=== PATIENT | male | born 1950 | race Caucasian/White ===

== ENCOUNTER 2018-08-04 04:58 | Inpatient (IN) ==
[2018-08-02 17:18] LABS: Basophils # (Auto) 0 K/mcL (0.0-0.3); Basophils % (Auto) 0.3 % (0.0-2.0); Eosinophils # (Auto) 0.1 K/mcL (0.0-0.7); Eosinophils % (Auto) 0.7 % (0.0-7.0); Granulocytes % (Auto) 57.9 % (38.0-78.0); Lymphocytes % (Auto) 34.2 % (15.5-49.0); Mean Cell Volume 90.7 fL (80.0-100.0); Mean Corpuscular HGB Conc 33.9 g/dL (31.0-36.0); Monocytes # (Auto) 0.6 K/mcL (0.1-0.9); Monocytes % (Auto) 6.9 % (1.0-12.0); Platelet Count 284 K/mcL (140-440); RBC 4.87 M/mcL (4.50-5.90)
[2018-08-02 17:32] LABS: Blood Urea Nitrogen 22 mg/dl (8-23)
[~2018-08-04 04:58] MED LIST: 0.9 % SODIUM CHLORIDE 250 ML IV SCH
[2018-08-04] MEDS ORDERED: 0.9 % SODIUM CHLORIDE 250 ML IV SCH ×2 (05:00→12:34)
[2018-08-04] MEDS ORDERED: cefOXitin 2 GM VIAL IV SCH ×2 (06:30→12:34)
[2018-08-04] MEDS ORDERED: TRANEXAMIC ACID 1,000 MG/10 ML VIAL IV ONE (07:45)
[2018-08-04] MEDS ORDERED: LIDOCAINE HCL/PF 100 MG/5 ML SYRINGE IV ONE (07:45)
[2018-08-04] MEDS ORDERED: ROCURONIUM 10 MG/ML ML IV ONE (07:45)
[2018-08-04] MEDS ORDERED: HYDROmorphone 2 MG/ML VIAL IV ONE (07:45)
[2018-08-04] MEDS ORDERED: KETAMINE 100 MG/ML ML IV ONE (07:45)
[2018-08-04] MEDS ORDERED: PHENYLEPHRINE 10 MG/ML VIAL IV ONE (07:45)
[2018-08-04] MEDS ORDERED: PROPOFOL 200 MG/20 ML VIAL IV ONE (07:45)
[2018-08-04] MEDS ORDERED: NEOSTIGMINE 1 MG/ML VIAL IV ONE (07:45)
[2018-08-04] MEDS ORDERED: ONDANSETRON 4 MG/2 ML VIAL IV ONE (07:45)
[2018-08-04] MEDS ORDERED: MIDAZOLAM 2 MG/2 ML VIAL IV ONE (07:45)
[2018-08-04] MEDS ORDERED: GLYCOPYRROLATE 0.2 MG/ML VIAL IV ONE (07:45)
[2018-08-04] MEDS ORDERED: fentaNYL 250 MCG/5 ML VIAL IV ONE (07:45)
[2018-08-04] MEDS ORDERED: BUPIVACAINE W/EPI 0.25% 50 ML VIAL IJ ONE (07:57)
[2018-08-04] MEDS ORDERED: MEPERIDINE 25 MG/ML SYRINGE IV PRN ×2 (09:28→10:38)
[2018-08-04] MEDS ORDERED: IPRATROPIUM/ALBUTEROL 3 ML AMPUL.NEB NEB PRN ×2 (09:28→10:38)
[2018-08-04] MEDS ORDERED: ONDANSETRON 4 MG/2 ML VIAL IV PRN ×3 (09:28→12:34)
[2018-08-04] MEDS ORDERED: PROMETHAZINE 25 MG/ML VIAL IV PRN (09:28)
[2018-08-04] MEDS ORDERED: FLUMAZENIL 0.1 MG/ML ML IV PRN (09:28)
[2018-08-04] MEDS ORDERED: ACETAMINOPHEN 1,000 MG/100 ML BOTTLE IV ONE (09:28)
[2018-08-04] MEDS ORDERED: diphenhydrAMINE 50 MG/ML VIAL IV PRN (09:28)
[2018-08-04] MEDS ORDERED: KETOROLAC 30 MG/ML VIAL IV PRN (09:28)
[2018-08-04] MEDS ORDERED: NALOXONE HCL 0.4 MG/ML VIAL IV PRN (09:28)
[2018-08-04] MEDS ORDERED: fentaNYL 100 MCG/2 ML VIAL IV PRN ×2 (09:28→10:38)
[2018-08-04] MEDS ORDERED: LACTATED RINGERS 250 ML IV PRN (09:28)
[2018-08-04] MEDS ORDERED: LACTATED RINGERS 1,000 ML IV SCH ×2 (09:30→10:45)
[2018-08-04] MEDS ORDERED: ALBUMIN HUMAN 37.5 GM/150 ML BAG IV ONE (10:38)
[2018-08-04] MEDS ORDERED: ePHEDrine 50 MG/ML AMPUL IV PRN (10:38)
[2018-08-04] MEDS ORDERED: METHOCARBAMOL 1,000 MG/10 ML VIAL IV PRN (10:38)
[2018-08-04] MEDS ORDERED: oxyCODONE/APAP 5/325MG TABLET PO PRN ×2 (10:56→12:34)
--- NOTE | 2018-08-04 10:56 | Brief Operative Note ---
Date of procedure: 08/04/18 Pre-op diagnosis: prostate cancer Post-op diagnosis: same Procedure: rrp Grafts/Implants: No Anesthesia: GETA Findings: negative nodes, see dictation Complications: none Surgeon: Drake Salazar Asbestos Removal Worker: Marlin Fernandez Estimated blood loss (cc): 1,000 Specimens Removed/Pathology: other (lymph nodes, prostate) Condition: stable Disposition: PACU
[2018-08-04] MEDS ORDERED: DEXTROSE 5%-1/2NS W/20MEQ KCL 1,000 ML IV SCH (11:00)
[2018-08-04] MEDS ORDERED: METHOCARBAMOL 750 MG TABLET PO PRN ×2 (11:10→12:34)
--- NOTE | 2018-08-04 11:42 | Operative Note ---
DATE OF OPERATION: 08/04/2018 PREOPERATIVE DIAGNOSIS: Prostate cancer. POSTOPERATIVE DIAGNOSIS: Prostate cancer. PROCEDURE: Radical retropubic prostatectomy. SURGEON: Drake Salazar MD INDICATION: The patient is a 68-year-old gentleman who has biopsy proven adenocarcinoma. Bone scan and CT scan were negative. He presents now for radical prostatectomy. PROCEDURE IN DETAIL: The patient was identified and consent was signed. He was given general anesthesia, placed in supine position, prepped and draped in a standard fashion. A Ramsay catheter was placed. A midline incision was made and carried down through the fascia with electrocautery. The fascia was then opened and we were able to enter the space of Retzius. The retractors were placed. We began node resection. The lymph node resection limits were from the lateral body wall to the bladder superiorly to the branching of the iliac vessels, and inferiorly to the inguinal ring. The right side were taken. These were soft and sent to pathology. On the left side, this procedure was repeated and it should be noted that these nodes were hard and inflamed. The decision was made to do a frozen section and this was sent off. We made sure bleeding was controlled. The frozen section came back as benign and we proceeded with the radical prostatectomy. We were able to place a backbleeding stitch of 0 Vicryl in the prostate and two along the dorsal venous complex. We were then able to divide the endopelvic fascia and were able to identify the prostate. The dorsal venous complex was then incised sharply with a knife and carried down to the urethra with the knife. Bleeding was controlled with a UR-5 on a chromic stitch. At this point, we were able to see the anterior urethra. This was sharply incised and 4 stitches were placed for anastomosis. The Ramsay catheter was then ___ and then the posterior wall of the urethra was then divided. We divided the Denonvilliers fascia and were able to develop a plane between the Denonvilliers fascia and the rectum. At no time did we damage the rectum. The lateral pedicles were taken down between ties. We then proceeded up into the base of the prostate. At this point, we were able to identify the seminal vesicles and the ampulla of vas. These were divided and sent with the specimen. We turned our attention to the anterior bladder wall. We divided this with scissors and then were able to enter the bladder. Orifices were in their normal position. We were then able to dissect the rest of the prostate off of the bladder and this was sent for pathology. Bleeding was controlled. We then turned our attention to the anastomosis. Stitches placed previously were at the 1, 3, 9, and 11 o'clock positions. The stitches were then placed at the 5 and 7 o'clock positions. We then were able to place corresponding stitches along the bladder neck. The bladder neck had been closed with 3-0 Vicryl. The Lembert stitches were also placed. We were then able to place stitches using a free needle and then place a Ramsay catheter. This showed good positioning. We then were able to tie down the stitches and it appeared that the anterior urethra did not have a good anastomosis. Four stitches were then placed and the catheter was reinserted into the bladder, making sure it was in good position. We were then able to irrigate and there was slight leakage, but was fairly dry. I was pleased with the overall appearance. A MARCOS drain was then placed. The muscles were then reapproximated and the fascia was then closed with a #1 PDS. The skin was closed with mary and the patient was awoken and taken to recovery room in stable condition. Needle and sponge count were correct. Estimated blood loss was 1000 mL. AGUSTIN:maliha Job ID: [id number] Doc ID: [id number] Drake Salazar MD
[2018-08-04] MEDS ORDERED: KETOROLAC 15 MG/ML VIAL IV SCH (12:00)
[2018-08-04] MEDS ORDERED: ACETAMINOPHEN 650 MG/65 ML BOTTLE IV SCH (12:00)
[2018-08-04 12:03] LABS: Mean Cell Volume 91.2 fL (80.0-100.0); Platelet Count 236 K/mcL (140-440); Red Cell Distribution Width 13.9 % (11.5-14.5)
[2018-08-04 12:23] LABS: Band Neutrophils % 23 % (0-10); Hypochromasia FEW (NONE SEEN); Lymphocytes % 15 % (15-49); Monocytes % (Manual) 7 % (1-12); Platelet Estimate NORMAL (NORMAL); RBC Morphology ABNORM (NORMAL); Segmented Neutrophils % 55 % (38-78)
[2018-08-04] MEDS ORDERED: 0.9 % SODIUM CHLORIDE 10 ML SYRINGE IV SCH (14:00)
[2018-08-04] MEDS: DEXTROSE 5%-1/2NS W/20MEQ KCL 1,000 ML IV SCH ×3 (14:47→23:07)
[2018-08-04] MEDS: 0.9 % SODIUM CHLORIDE 10 ML SYRINGE IV SCH ×2 (14:48→23:05)
[2018-08-04] MEDS ORDERED: GEMFIBROZIL 600 MG TABLET PO SCH (17:00)
[2018-08-04] MEDS: GEMFIBROZIL 600 MG TABLET PO SCH (17:28)
[2018-08-04] MEDS: KETOROLAC 15 MG/ML VIAL IV SCH (17:29)
[2018-08-04] MEDS: ACETAMINOPHEN 650 MG/65 ML BOTTLE IV SCH (17:29)
[2018-08-04] MEDS ORDERED: ATORVASTATIN 20 MG TABLET PO SCH ×2 (21:00)
[2018-08-04] MEDS ORDERED: FAMOTIDINE 20 MG TABLET PO SCH ×2 (21:00)
[2018-08-04] MEDS ORDERED: PRAMIPEXOLE 0.25 MG TABLET PO SCH ×2 (21:00)
[2018-08-05] MEDS: KETOROLAC 15 MG/ML VIAL IV SCH ×5 (01:39→23:51)
[2018-08-05] MEDS: ACETAMINOPHEN 650 MG/65 ML BOTTLE IV SCH ×5 (01:39→23:44)
[2018-08-05] MEDS: 0.9 % SODIUM CHLORIDE 10 ML SYRINGE IV SCH ×3 (06:00→20:31)
[2018-08-05 06:59] LABS: Mean Cell Volume 92.9 fL (80.0-100.0); Platelet Count 202 K/mcL (140-440); RBC 3.54 M/mcL (4.50-5.90)
[2018-08-05] MEDS: DEXTROSE 5%-1/2NS W/20MEQ KCL 1,000 ML IV SCH ×3 (07:06→16:43)
[2018-08-05] MEDS: GEMFIBROZIL 600 MG TABLET PO SCH ×2 (07:07→16:43)
[2018-08-05 07:18] LABS: Blood Urea Nitrogen 18 mg/dl (8-23)
[2018-08-05] MEDS ORDERED: PANTOPRAZOLE 40 MG TABLET PO SCH ×2 (07:30)
--- NOTE | 2018-08-05 07:40 | General Surgery Progress Note ---
Subjective Patient reports: no new complaints, no flatus Narrative: Note initiated : 08/05/18 at 7:30 am Service Date, if different from initiated Date: [] Patient: Lemuel Pace 68 y/o M admitted on 08/04/18 for Radical Retropubic Prostatectomy. Chief Complaint: POD #1 patient doing well. AF/VS. ambulating. HCT stable. wound clean and dry. will transfer to floor ambulate Objective Temp Pulse Resp BP Pulse Ox 98.1 F 59 L 16 124/73 93 08/05/18 04:00 08/04/18 19:17 08/05/18 04:00 08/05/18 04:00 08/05/18 04:00 - Additional Data Intake & Output - Last 24 hours: Intake & Output 08/03/18 08/04/18 08/05/18 08/06/18 05:59 05:59 05:59 05:59 Intake Total 5420 1063 Output Total 2370 Balance 3050 1063 Weight 231 lb 6 oz 231 lb 6 oz 234 lb - Labs 08/05/18 04:05 08/05/18 04:05 Diabetes panel 08/05/18 Range/Units 04:05 Sodium 136 (133-145) mmol/L Potassium 4.1 (3.3-5.1) mmol/L Chloride 102 (96-108) mmol/L Carbon Dioxide 24 (22-30) mmol/L BUN 18 (8-23) mg/dl Creatinine 0.9 (0.7-1.2) mg/dl Glucose 112 H (70-105) mg/dL Calcium 7.9 L (8.6-10.4) mg/dl Calcium panel 08/05/18 Range/Units 04:05 Calcium 7.9 L (8.6-10.4) mg/dl Pituitary panel 08/05/18 Range/Units 04:05 Sodium 136 (133-145) mmol/L Potassium 4.1 (3.3-5.1) mmol/L Chloride 102 (96-108) mmol/L Carbon Dioxide 24 (22-30) mmol/L BUN 18 (8-23) mg/dl Creatinine 0.9 (0.7-1.2) mg/dl Glucose 112 H (70-105) mg/dL Calcium 7.9 L (8.6-10.4) mg/dl Adrenal panel 08/05/18 Range/Units 04:05 Sodium 136 (133-145) mmol/L Potassium 4.1 (3.3-5.1) mmol/L Chloride 102 (96-108) mmol/L Carbon Dioxide 24 (22-30) mmol/L BUN 18 (8-23) mg/dl Creatinine 0.9 (0.7-1.2) mg/dl Glucose 112 H (70-105) mg/dL Calcium 7.9 L (8.6-10.4) mg/dl Assessment and Plan - Time Spent With Patient Total time spent is greater than 50% in coordination of care (as documented) at patient's floor/unit and/or counseling patient:
[2018-08-05] MEDS ORDERED: ONDANSETRON 4 MG/2 ML VIAL IV PRN (08:10)
[2018-08-05] MEDS ORDERED: VITAMIN D3 5,000 UNIT CAPSULE PO SCH ×2 (09:00)
[2018-08-05] MEDS ORDERED: DULoxetine 30 MG CAPSULE PO SCH ×2 (09:00)
[2018-08-05] MEDS: VITAMIN D3 5,000 UNIT CAPSULE PO SCH (09:49)
[2018-08-05] MEDS: DULoxetine 30 MG CAPSULE PO SCH (09:49)
[2018-08-05] MEDS: oxyCODONE/APAP 5/325MG TABLET PO PRN ×2 (09:54→16:44)
[2018-08-05] MEDS: METHOCARBAMOL 750 MG TABLET PO PRN ×2 (09:55→16:44)
[2018-08-05] MEDS ORDERED: PRAMIPEXOLE 0.25 MG TABLET PO SCH (21:00)
[2018-08-05] MEDS ORDERED: ATORVASTATIN 20 MG TABLET PO SCH (21:00)
[2018-08-05] MEDS ORDERED: FAMOTIDINE 20 MG TABLET PO SCH (21:00)
[2018-08-06] MEDS: DEXTROSE 5%-1/2NS W/20MEQ KCL 1,000 ML IV SCH ×2 (00:21→08:19)
[2018-08-06] MEDS: KETOROLAC 15 MG/ML VIAL IV SCH (05:44)
[2018-08-06] MEDS: ACETAMINOPHEN 650 MG/65 ML BOTTLE IV SCH (05:45)
[2018-08-06] MEDS: 0.9 % SODIUM CHLORIDE 10 ML SYRINGE IV SCH (05:50)
[2018-08-06] MEDS ORDERED: PANTOPRAZOLE 40 MG TABLET PO SCH (07:30)
--- NOTE | 2018-08-06 07:52 | General Surgery Progress Note ---
Subjective Patient reports: feels better, flatus Narrative: Note initiated : 08/06/18 at 7:51 am Service Date, if different from initiated Date: [] Patient: Lemuel Pace 68 y/o M admitted on 08/04/18 for Radical Retropubic Prostatectomy. Chief Complaint: [] POD #2 patient without compalints marcia removed. will d/c to home f/u for staple removal Objective Temp Pulse Resp BP Pulse Ox 98.0 F 76 18 149/81 97 08/06/18 07:39 08/06/18 03:50 08/06/18 07:39 08/06/18 07:39 08/06/18 07:39 - Additional Data Intake & Output - Last 24 hours: Intake & Output 08/04/18 08/05/18 08/06/18 08/07/18 05:59 05:59 05:59 05:59 Intake Total 5420 5647 0 Output Total 2370 2237 Balance 3050 3410 0 Weight 231 lb 6 oz 234 lb 234 lb - Labs 08/05/18 04:05 08/05/18 04:05 Assessment and Plan - Time Spent With Patient Total time spent is greater than 50% in coordination of care (as documented) at patient's floor/unit and/or counseling patient:
--- NOTE | 2018-08-06 08:04 | Discharge Plan ---
Discharge Plan - Patient/Caregiver Discharge Instructions Activity: increase activity as tolerated Diet: Regular Diet Prescriptions: Ciprofloxacin [Cipro] 500 mg PO DAILY #10 tab oxyCODONE HCL/ACETAMINOPHEN [Percocet 10-325 mg Tablet] 1 each PO Q4-6HP PRN #20 tab PRN Reason: Pain - Follow up Plan Follow up with: Drake Salazar MD [Physician] - 08/22/18 10:30 am Disposition: Home, Self-Care Prognosis: Good Rehab Potential: Good Overall status at discharge: patient is back to baseline
[2018-08-06] MEDS: GEMFIBROZIL 600 MG TABLET PO SCH (09:36)
[2018-08-06] MEDS: DULoxetine 30 MG CAPSULE PO SCH (09:37)
[2018-08-06] MEDS: VITAMIN D3 5,000 UNIT CAPSULE PO SCH (09:37)
--- NOTE | 2018-08-08 07:23 | Discharge Summary ---
DATE OF ADMISSION: 08/04/2018 DATE OF DISCHARGE: 08/06/2018 ADMISSION DIAGNOSIS: Prostate cancer. DISCHARGE DIAGNOSIS: Prostate cancer. PROCEDURE: Radical retropubic prostatectomy. SURGEON: Drake Salazar MD INDICATIONS: The patient is a 68-year-old gentleman with known prostate cancer. He presents now for radical retropubic prostatectomy. For the rest of history and physical, please see the preoperative History and Physical. HOSPITAL COURSE: The patient was taken to the operating room where a radical prostatectomy was performed. Frozen sections were negative on his lymph nodes. He did well throughout the rest of his hospital stay, was advanced through his diet, was passing flatus and his pain is controlled with medication. He is ambulating and is ready for discharge to home. He does have a Ramsay catheter in which we will leave for 2 weeks. We will see him back next week to remove his mary. His pathology is still pending. DISCHARGE MEDICATIONS: Preoperative medications plus Cipro which he will take around the time before the catheter was removed, and Percocet for pain. I have answered all his questions. There were no complications. AGUSTIN:maliha Job ID: [id number] Doc ID: [id number] Drake Salazar MD
--- NOTE | 2018-08-09 12:34 | Surgical Pathology Report ---
HISTOLOGY SPECIMEN MICROSCOPIC DIAGNOSIS SPECIMEN A - LYMPH NODES, LEFT OBTURATOR, REGIONAL DISSECTION: -- FIVE LYMPH NODES NEGATIVE FOR METASTATIC CARCINOMA (0/5). SPECIMEN B - LYMPH NODES, RIGHT OBTURATOR, REGIONAL DISSECTION: -- THREE LYMPH NODES NEGATIVE FOR METASTATIC CARCINOMA (0/3). SPECIMEN C - PROSTATE, BILATERAL SEMINAL VESICLES AND VAS DEFERENS, RADICAL PROSTATECTOMY: -- PROSTATE: - PROSTATIC ADENOCARCINOMA WITH THE FOLLOWING FEATURES: - HISTOLOGIC GRADE: ROSA ELENA SCORE 7 (3+4), ROSA ELENA GRADE GROUP 2. - PERCENTAGE OF ROSA ELENA PATTERN 4 CANCER: 40%. - TUMOR QUANTITATION: TUMOR INVOLVES 20% OF EXAMINED TISSUE. - TUMOR LOCATION: LEFT AND RIGHT LOBES. - EXTRAPROSTATIC EXTENSION: NOT IDENTIFIED. - SEMINAL VESICLE INVASION: NOT IDENTIFIED. - URINARY BLADDER NECK INVASION: NOT IDENTIFIED. - LYMPH/VASCULAR INVASION: NOT IDENTIFIED. - PERINEURAL INVASION: PRESENT. - MARGINS: UNINVOLVED BY INVASIVE CARCINOMA. - PATHOLOGIC STAGE: pT2 N0. - SEE SUMMARY CANCER DATA FOR DETAILS. - HIGH-GRADE PROSTATIC INTRAEPITHELIAL NEOPLASIA (HGPIN). - NODULAR STROMAL AND GLANDULAR HYPERPLASIA. - ACUTE AND CHRONIC PROSTATITIS, MILD. -- SEMINAL VESICLES: - NO DIAGNOSTIC ALTERATIONS. - NO MALIGNANCY IDENTIFIED. -- VAS DEFERENS: - NO DIAGNOSTIC ALTERATIONS. - NO MALIGNANCY IDENTIFIED. (DMT:adj) SUMMARY CANCER DATA: Procedure: Radical prostatectomy. Prostate Size: 4.6 x 4.3 x 3.8 cm. Histologic Grade: [place] Score 7 (3+4), Rosa Elena Grade Group 2. Percentage of Pattern 4 Cancer: 40%. Tumor Quantitation: Proportion (percentage) of prostate involved by tumor: 20%. Tumor Location: Left and right lobes. Extraprostatic Extension: Not identified. Seminal Vesicle Invasion: Not identified. Lymph/Vascular Invasion: Not identified. Perineural invasion: Present. Surgical Margins: Uninvolved by invasive carcinoma. Pathologic Stage: pT2 N0. INTRAOPERATIVE CONSULTATION TOUCH PREP DIAGNOSIS (Performed at [facility], [place], [place]) SPA - LYMPH NODES, LEFT OBTURATOR, EXCISION: -- NO METASTATIC CARCINOMA IDENTIFIED. (RLF:sln) PROCEDURAL IMPRESSION Rule out prostate cancer invasion of lymph nodes. GROSS DESCRIPTION Specimen A: Received fresh for intraoperative consultation labeled left obturator lymph node, are multiple martinez-yellow fatty tissue fragments measuring 5.5 x 4 x 1.5 cm. Touch preps and scrape preps are performed. Four candidate lymph nodes are identified. Entirely submitted in nine cassettes: A1-A2 - one candidate node; A3-A4 - one candidate node; A5-A6 - one candidate node; A7-A9 - one candidate node. (RF) Also received in formalin is a telfa pad containing fatty tissue fragments in aggregate 6 x 5.2 x 1.3 cm. Within this aggregate of tissue there is a candidate lymph node measuring 2.5 x 1.5 x 1 cm. Cut surfaces are pink-martinez. This candidate lymph node is entirely submitted in A10-A12. (SCB) Specimen B: Received in formalin labeled right obturator nodes, is a telfa pad containing multiple fatty martinez tissue fragments in aggregate 6.2 x 3.6 x 1.2 cm. Within this aggregate of tissue there are three candidate lymph nodes from 1.2 x 0.9 x 0.6 cm to 5 x 2.5 x 0.9 cm. The largest is disrupted and the two smallest candidate nodes are inked. The candidate nodes are submitted in six cassettes: B1 - two smaller nodes; B2-B6 - largest candidate node. Specimen C: Received in formalin labeled prostate, is a 44 gram, 4.6 cm from left to right, 4.3 cm from apex to base and 3.8 cm from anterior to posterior radical prostatectomy specimen with an attached 2.4 cm long, 0.4 cm diameter portion of left vas deferens and possible 0.8 cm long, up to 0.4 cm diameter portion of right vas deferens. Also received within the container are three fragments of seminal vesicle, 2.2 x 1.9 x 0.9 cm, 2.4 x 1.1 x 0.7 cm and 1.4 x 0.8 x 0.5 cm. The margins of the prostate are inked black and the left anterior surface is over-inked yellow and the right anterior surface is over-inked green. The external surface is markedly cauterized with a few attached black sutures. The specimen is serially sectioned from apex to base into twelve slices (average slice thickness 0.3-0.4 cm). Sectioning reveals prominent central nodularity with nodules ranging from 0.5 to 1.4 cm in greatest dimension. The remaining parenchyma, predominately posterior-lateraly, is martinez-pink and firm. No definite gross mass lesion is seen. The possible vas deferens fragments are sectioned and the left vas deferens has a pinpoint lumen. The right segment of vas deferens is not definitively identified. Sections of seminal vesicle consist of unremarkable undulating tubular segments. No gross seminal vesicle lesions are identified. Insurance Claims Clerk sections including 60% of the specimen, are submitted as follows: C1 - slice 1, left apex margin, perpendicular; C2 - slice 1, right apex margin, perpendicular; C3-C4 - composite cross section of slice 3 (C3 - left half, C4 - right half); C5-C8 - composite cross section of slice 5 (C5 - left anterior, C6 - left posterior, C7 - right posterior, C8 - right anterior); C9-C12 - composite cross section of slice 7 (C9 - left anterior, C10 - left posterior, C11 - right posterior, C12 - right anterior); C13-C14 - composite cross section of slice 9 (C13 - left half, C14 - right half; no anterior margin); C15-C16 - composite cross section of slice 11 (C15 - left half, C16 - right half; no anterior margin); C17 - slice 12, left base margin, perpendicular; C18 - slice 12, right base margin, perpendicular; C19 - left vas deferens and possible right vas deferens margin; C20 - registered representative sections of additional seminal vesicle fragments. (DMT:dereck) Electronically Signed by: Erwin Boone M.D.
== END 2018-08-06 09:45 | disposition home or self-care (01) | DRG 708 ==
LOC: MEDSUR 04:58 → ICU 15:22